=== PATIENT | male | born 2000 | race Hispanic/Latino ===

== ENCOUNTER 2023-11-26 17:08 | Emergency (ER) | payer BC, OTHER ==
[~2023-11-26] VITALS: Ht 185.4 cm; Wt 108.9 kg
[2023-11-26 18:38] LABS: APPEARANCE,URINE CLEAR (CLEAR); BILIRUBIN,URINE NEGATIVE (NEGATIVE); COLOR,URINE COLORLESS (YELLOW); GLUCOSE, URINE (UA) NEGATIVE (NEGATIVE); KETONES,URINE NEGATIVE (NEGATIVE); LEUKOCYTE ESTERASE ,URINE NEGATIVE Leu/uL (NEGATIVE); NITRATE,URINE NEGATIVE (NEGATIVE); OCCULT BLOOD,URINE NEGATIVE (NEGATIVE); PH,URINE 5.5 (5.0-8.0); PROTEIN,URINE NEGATIVE (NEGATIVE); UROBILINOGEN,URINE 0.2 mg/dL (0.2-1.0)
[2023-11-26 18:42] LABS: ADD UA MICROSCOPIC YES
[2023-11-26 18:43] LABS: WBC,URINE 0-1 /HPF (0-1)
[2023-11-26 19:20] VITALS: BP 134/84; PULSE 74; RESP 18; TEMP 97.1; O2SAT 97
== END 2023-11-26 19:29 | disposition home or self-care (01) ==
LOC: EDH 17:08
DX: N50.811 Right testicular pain (principal)
CPT/HCPCS: 76870; 81001